=== PATIENT | female | born 1970 | race Hispanic/Latino ===

== ENCOUNTER 2022-04-03 23:52 | Emergency (ER) | payer SELFPAY ==
--- OUTSIDE RECORDS SUMMARY | 2022-04-03 23:55 | XMS REPORT | Continuity of Care Document ---
:1970 Author Organization [facility] t Address [address] [place] [address] Care Team Providers Name Role Phone PCP, PATIENT DOES NOT HAVE A Primary Care Physician CHANTE Mosley Attending Clinician Unavailable Problems This patient has no known problems. Allergies, Adverse Reactions, Alerts Allergy Allergy Status Severity Reaction(s) Onset Inactive Treating Comm ents Source Name Type Date Date Clinician NO KNOWN Drug Active [facility] Medications This patient has no known medications. Procedures This patient has no known procedures. Encounters Start End Encounter Admission Attending Care Care Encounter Source Date/Time Date/Time Type Type Clinicians Facility Department ID 2020-11-17 2020-11-17 Outpatient [facility] [id number] [facility] 10:30:00 10:30:00 CHANTE dash [facility] Results This patient has no known results.
[2022-04-04 00:21] LABS: Urine Blood 2+ (Negative); Urine Glucose Negative (Negative); Urine Protein Negative (Negative); Urine Specific Gravity 1.025 (1.005-1.030)
[2022-04-04] MEDS ORDERED: KETOROLAC 30 MG/ML INJ ONE (00:23)
[2022-04-04 00:39] LABS: Urine Mucus Slight /HPF (None Seen); Urine RBC 21-50 /HPF (None Seen)
[2022-04-04 00:49] LABS: Hematocrit 34.5 % (36.0-45.0); Lymphocytes % 22.2 % (15.3-44.8); MCV 88.3 fL (80-100); MPV 9.1 fL (7.6-11.3)
[2022-04-04 00:59] LABS: Albumin 3.7 g/dL (3.4-5.0); Bilirubin Total 0.4 mg/dL (0.2-1.0); Potassium 3.6 mmol/L (3.5-5.1); Protein, Total 8.3 g/dL (6.4-8.2)
--- NOTE | 2022-04-04 02:01 | EDPHYS ---
Physician Documentation [facility] Name: Jigna Joaquin Age: 52 yrs Sex: Female : 1970 Arrival Date: 04/03/2022 Time: 23:55 Bed 6 Private MD: ED Physician Frederick Kent HPI: 04/04 00:11 This 52 yrs old Female presents to ER via Wheelchair with complaints of Low sp3 Back Pain, Leg Pain. 00:11 -year-old female with history of hypertension presents with lower back pain with sp3 radiculopathy radiating posteriorly on the right leg since approximately 9 PM 3 hours prior to arrival. Patient states that she might of pulled a muscle but denies any acute injury or trauma. She also has urinary frequency and mild dysuria. She denies , saddle anesthesia, loss or bowel or bladder control, rash, fever, URI symptoms, chest pain, shortness of breath, upper back pain, abdominal pain, syncope, focal neurodeficit, sensory losses, or any other critical findings at this time on ROS.. 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 - Social history:: Smoking status: Patient denies any tobacco usage or history of. ROS: 00:12 Constitutional: Negative for fever, chills, and weight loss, Eyes: Negative for injury, sp3 pain, redness, and discharge, ENT: Negative for injury, pain, and discharge, Neck: Negative for injury, pain, and swelling, Cardiovascular: Negative for chest pain, palpitations, and edema, Respiratory: Negative for shortness of breath, cough, wheezing, and pleuritic chest pain, MS/Extremity: Negative for injury and deformity, Skin: Negative for injury, rash, and discoloration, Neuro: Negative for headache, weakness, numbness, tingling, and seizure. 00:12 All other systems are negative. Exam: 00:12 Constitutional: This is a well developed, well nourished patient who is awake, alert, sp3 and in no acute distress. Head/Face: Normocephalic, atraumatic. Eyes: Pupils equal round and reactive to light, extra-ocular motions intact. Lids and lashes normal. Conjunctiva and sclera are non-icteric and not injected. Cornea within normal limits. Periorbital areas with no swelling, redness, or edema. ENT: Nares patent. No nasal discharge, no septal abnormalities noted. External auditory canals are clear. Oropharynx with no redness, swelling, or masses, exudates, or evidence of obstruction, uvula midline. Mucous membranes moist. Neck: Trachea midline, no thyromegaly or masses palpated, and no cervical lymphadenopathy. Supple, full range of motion without nuchal rigidity, or vertebral point tenderness. No Meningismus. Chest/axilla: Normal chest wall appearance and motion. Nontender with no deformity. No lesions are appreciated. Cardiovascular: Regular rate and rhythm with a normal S1 and S2. No gallops, murmurs, or rubs. Normal PMI, no JVD. No pulse deficits. Respiratory: Lungs have equal breath sounds bilaterally, clear to auscultation and percussion. No rales, rhonchi or wheezes noted. No increased work of breathing, no retractions or nasal flaring. Abdomen/GI: Soft, non-tender, with normal bowel sounds. No distension or tympany. No guarding or rebound. No evidence of tenderness throughout. Back: No spinal tenderness. No costovertebral tenderness. Full range of motion. Skin: Warm, dry with normal turgor. Normal color with no rashes, no lesions, and no evidence of cellulitis. Neuro: Awake and alert, GCS 15, oriented to person, place, time, and situation. Cranial nerves II-XII grossly intact. Motor strength 5/5 in all extremities. Sensory grossly intact. Cerebellar exam normal. Normal gait. 00:12 Back: She has full range of motion but has pain on flexion of her back. Also positive straight leg raise pain at 30 degrees. Distal neurovascular exam is normal including motor, sensory including proprioception and pin and temperature.. Vital Signs: 00:03 BP 118 / 64; Pulse 74; Resp 20; Temp 99.1; Pulse Ox 97% ; Weight 92.99 kg; Height 5 ft. kb3 3 in. (160.02 cm); Pain 8/10; 02:08 Pulse 66; Pulse Ox 98% on R/A; kd3 00:03 Body Mass Index 36.31 (92.99 kg, 160.02 cm) kb3 MDM: 04/03 23:59 Patient medically screened. sp3 04/04 00:13 Data reviewed: vital signs, nurses notes. ED course: 52-year-old female with low back sp3 pain, urinary symptoms, and sciatica/radiculopathy presentation on the right lower extremity. Differential diagnosis includes radiculopathy, lumbar disc disease, sciatica. So UTI/pyelonephritis given her urinary symptoms couple include x-rays of her lumbar spine, laboratory values, urinalysis including micro. Treatment with ketorolac with an additional antibiotic if indicated. If x-rays are normal, outpatient MRI to evaluate discs will be recommended.. 01:59 ED course: Due to patient having hematuria on urine micro results, CT stone protocol sp3 was ordered. It demonstrates no significant abnormalities including no kidney stone or nephrolithiasis. She does have cholelithiasis without evidence of cholecystitis. She is also status post gastric bypass. This point we will treat as a urinary tract infection plus sciatica and she will be discharged with antibiotics and pain medication.. 04/04 00:09 Order name: CBC with Diff; Complete Time: 01: sp3 04/04 00:09 Order name: CMP; Complete Time: 01: sp3 04/04 00:09 Order name: Lumbar Spine (3 Views) XRAY sp3 04/04 00:09 Order name: Urine Microscopic Only; Complete Time: 01: sp3 04/04 00:21 Order name: Urine Dipstick-Ancillary; Complete Time: 01:02 EDMS 04/04 00:24 Order name: Urine Dipstick-Ancillary EDMS 04/04 00:09 Order name: IV Saline Lock; Complete Time: 00:32 sp3 04/04 00:09 Order name: Labs collected and sent; Complete Time: 00:32 sp3 04/04 00:09 Order name: Urine Dipstick-Ancillary (obtain specimen); Complete Time: 00:21 sp3 04/04 01:06 Order name: CT Stone Protocol sp3 Administered Medications: 00:32 Drug: Ketorolac 30 mg Route: IVP; Site: right antecubital; kd3 02:08 Follow up: Response: No adverse reaction; Pain is decreased kd3 Disposition Summary: 04/04/22 02:01 Discharge Ordered Location: Home sp3 Condition: Stable sp3 Diagnosis - Sciatica, right side sp3 - Radiculopathy, lumbar region sp3 - UTI/ Urinary tract infection, site not specified sp3 Followup: sp3 - With: Private Physician - When: Upon discharge from the Emergency Department - Reason: Continuance of care Discharge Instructions: - Discharge Summary Sheet sp3 - Dysuria sp3 - Radicular Pain sp3 Forms: - Medication Reconciliation Form sp3 - Thank You Letter sp3 - Antibiotic Education sp3 - Prescription Opioid Use sp3 Prescriptions: - Diclofenac Sodium 75 mg Oral Tablet Sustained Release - take 1 tablet by ORAL route 2 times per day; 30 tablet; Refills: 0, Product sp3 Selection Permitted - Bactrim DS 800-160 mg Oral Tablet - take 1 tablet by ORAL route every 12 hours for 5 days; 10 tablet; Refills: 0, sp3 Product Selection Permitted Signatures: Dispatcher [employer] Frederick Dumas MD MD sp3 Alma Davis RN RN kd3 Ella Rondon RN RN kb3
--- NOTE | 2022-04-04 02:01 | ER ---
Nurse's Notes [facility] Name: Jigna Joaquin Age: 52 yrs Sex: Female : 1970 Arrival Date: 04/03/2022 Time: 23:55 Bed 6 Private MD: Diagnosis: Sciatica, right side;Radiculopathy, lumbar region;UTI/ Urinary tract infection, site not specified Presentation: 04/04 00:03 Chief complaint: Patient states: Pt reports right lower back pain radiating down her kb3 right leg x24 hrs. Coronavirus screen: Vaccine status: Patient reports receiving the 2nd dose of the covid vaccine. Client denies travel out of the [place] in the last 14 days. Ebola Screen: Patient negative for fever greater than or equal to 101.5 degrees Fahrenheit, and additional compatible Ebola Virus Disease symptoms Patient denies exposure to infectious person. Patient denies travel to an Ebola-affected area in the 21 days before illness onset. Initial Sepsis Screen: Does the patient meet any 2 criteria? No. Patient's initial sepsis screen is negative. Does the patient have a suspected source of infection? No. Patient's initial sepsis screen is negative. Risk Assessment: Do you want to hurt yourself or someone else? Patient reports no desire to harm self or others. Onset of symptoms was April 03, 2022 at 20:00. 00:03 Method Of Arrival: Wheelchair kb3 00:03 Acuity: KARINA 4 kb3 Triage Assessment: 00:05 General: Appears in no apparent distress. uncomfortable, Behavior is calm, cooperative. kb3 Pain: Complains of pain in right low back Pain radiates to right gluteal fold and right hamstring Pain currently is 8 out of 10 on a pain scale. Quality of pain is described as burning, sharp, Pain began 1 day ago. Is continuous. 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 - Social history:: Smoking status: Patient denies any tobacco usage or history of. Screenin:08 Abuse screen: Denies threats or abuse. Denies injuries from another. Nutritional kd3 screening: No deficits noted. Tuberculosis screening: No symptoms or risk factors identified. Fall Risk None identified. Assessment: 00:07 General: Appears uncomfortable, Behavior is calm, cooperative. General:. Pain: kd3 Complains of pain in right leg and right hamstring and right gluteal fold and back and right low back. Neuro: Level of Consciousness is awake, alert, obeys commands, Oriented to person, place, time, situation. Cardiovascular: Patient's skin is warm and dry. Respiratory: Airway is patent Trachea midline Respiratory effort is even, unlabored, Respiratory pattern is regular, symmetrical. GI: No signs and/or symptoms were reported involving the gastrointestinal system. : No signs and/or symptoms were reported regarding the genitourinary system. EENT: No signs and/or symptoms were reported regarding the EENT system. Derm: No signs and/or symptoms reported regarding the dermatologic system. Musculoskeletal: No signs and/or symptoms reported regarding the musculoskeletal system. 00:58 Reassessment: No changes from previously documented assessment. Patient and/or family kd3 updated on plan of care and expected duration. Pain level reassessed. Patient is alert, oriented x 3, equal unlabored respirations, skin warm/dry/pink. Patient states feeling better. Patient states symptoms have improved. Vital Signs: 00:03 BP 118 / 64; Pulse 74; Resp 20; Temp 99.1; Pulse Ox 97% ; Weight 92.99 kg; Height 5 ft. kb3 3 in. (160.02 cm); Pain 8/10; 02:08 Pulse 66; Pulse Ox 98% on R/A; kd3 00:03 Body Mass Index 36.31 (92.99 kg, 160.02 cm) kb3 ED Course: 04/03 23:55 Patient arrived in ED. ja2 23:57 Frederick Kent MD is Attending Physician. sp3 04/04 00:00 Alma Davis, MICHAEL is Primary Nurse. kd3 00:05 Triage completed. kb3 00:05 Arm band placed on right wrist. Patient placed in an exam room, on a stretcher. kb3 00:08 Patient has correct armband on for positive identification. kd3 00:08 No provider procedures requiring assistance completed. kd3 00:26 Lumbar Spine (3 Views) XRAY In Process Unspecified. EDMS 00:32 CBC with Diff Sent. kd3 00:32 CMP Sent. kd3 00:32 Urine Microscopic Only Sent. kd3 00:32 Inserted saline lock: 20 gauge in right antecubital area, using aseptic technique. kd3 Blood collected. 01:37 CT Stone Protocol In Process Unspecified. EDMS 02:08 IV discontinued, intact, bleeding controlled, No redness/swelling at site. Pressure kd3 dressing applied. Administered Medications: 00:32 Drug: Ketorolac 30 mg Route: IVP; Site: right antecubital; kd3 02:08 Follow up: Response: No adverse reaction; Pain is decreased kd3 Medication: 00:08 VIS not applicable for this client. kd3 Outcome: 02:01 Discharge ordered by . sp3 02:08 Discharged to home ambulatory, with family. kd3 02:08 Condition: stable 02:08 Discharge instructions given to patient, family, Instructed on discharge instructions, follow up and referral plans. medication usage, Demonstrated understanding of instructions, follow-up care, medications, Prescriptions given X 2. 02:09 Patient left the ED. kd3 Signatures: Dispatcher [employer] Frederick Dumas MD MD sp3 Sridevi Laura Kyli, RN RN kd3 Ella Rondon RN RN kb3
[2022-04-04 02:28] VITALS: BP 118/64; TEMP 99.1
[2022-04-04 02:29] VITALS: O2SAT 98
--- NOTE | 2022-04-04 13:16 | RAD REPORT ---
EXAM DESCRIPTION: RAD - Lumbar Spine 3 Views - 04/04/2022 12:24 am CLINICAL HISTORY: 52 years, Female, LOWER BACK PAIN COMPARISON: None. FINDINGS: Three X-ray views of the Lumbar spine (frontal, lateral and coned-down views) were perform ed. There is normal anatomic alignment of the lumbar vertebral bodies. There is preservation of the int erbody disc heights and the vertebral body heights. The adjacent soft tissues are unremarkable. T here is no evidence for fracture or subluxation. There is no evidence for spondylolisthesis. There is minimal posterior facet hypertrophy at L4-S1. IMPRESSION: Minimal posterior facet hypertrophy at L4-S1. Electronically signed by: Oh Camarena MD 04/04/2022 12:41 AM DATABASE SPECIALIST Due to temporary technical issues with the PACS/Fluency reporting system, reports are being signed by the in house radiologists without review as a courtesy to insure prompt reporting. The interpreting radiologist is fully responsible for the content of the report.
--- NOTE | 2022-04-04 13:39 | RAD REPORT ---
EXAM DESCRIPTION: CT - Stone Protocol - 04/04/2022 6:11 am CLINICAL HISTORY: 52 years, Female, low back pain + hematuria COMPARISON: None. TECHNIQUE: Multiple transaxial tomograms of the abdomen and pelvis were performed from the lung base s to the symphysis pubis 3 mm slice thickness at 3 mm interval reconstruction, without administration of IV and oral contrast. Multiplanar reformats in the sagittal and coronal plane were generated and reviewed. This exam was performed according to our departmental dose-optimization protocol, which includes auto mated exposure control, adjustment of the mA and/or kV according to patient size and/or use of iterat mary jane reconstruction technique. FINDINGS: The lack of IV and oral contrast limits evaluation of solid organs, subtle lesions cannot be excluded. The lung bases demonstrate to be clear. Mild elevation right hemidiaphragm. Grossly the unopacified liver, pancreas, spleen and adrenal glands demonstrate to be within normal li mits, no significant focal lesions were identified. Minimal layering high density material within the gallbladder on image 47 corresponding to cholelithi asis. There is no biliary duct dilatation. The kidneys demonstrate grossly unremarkable. There is no evidence for nephrolithiasis and/or hydro nephrosis. Grossly the unopacified stomach demonstrate status post gastric bypass sleeve. Otherwise the stomach, small bowel and large bowel demonstrate to be within normal limits. There is no evidence for bowel d ilatation/or free air. There is mild fecal stasis. There is minimal diverticulosis within the sigmoid colon. The appendix is unremarkable. There is a umbilical hernia containing omentum with minimal haziness of the peritoneal fat perhaps garcia ggesting the possibility of irritation/or minimal inflammation on axial image [id number]. The urinary bladder demonstrate to be within normal limits. The uterus demonstrate to be within reji l limits. No adnexal masses are identified. The aorta demonstrate to be within normal limits. There is no retroperitoneal lymphadenopathy. There is no evidence for ascites. The rest of the soft tiss ue demonstrate to be grossly unremarkable. IMPRESSION: No evidence for nephrolithiasis and/or hydronephrosis. Umbilical hernia containing omentum with minimal haziness of the peritoneal fat perhaps suggesting th e possibility of irritation/or minimal inflammation. Status post gastric bypass sleeve. Cholelithiasis. Electronically signed by: Oh Camarena MD 04/04/2022 1:53 AM RUNNING INSTRUCTOR Due to temporary technical issues with the PACS/Fluency reporting system, reports are being signed by the in house radiologists without review as a courtesy to insure prompt reporting. The interpreting radiologist is fully responsible for the content of the report.
== END 2022-04-04 02:09 | disposition home or self-care (01) ==
LOC: ER 23:52
DX: M54.31 Sciatica, right side (principal); N39.0 Urinary tract infection, site not specified; M54.16 Radiculopathy, lumbar region; I10 Essential (primary) hypertension
CPT/HCPCS: 36415; 72100; 74176; 76377; 80053; 81003; 81015; 85025; 96374; 99284